=== PATIENT | male | born 1970 | race Caucasian/White ===

== ENCOUNTER → 2017-09-04 | Outpatient (CLI) | payer SELFPAY ==
[~2017-09-04] VITALS: Ht 177.8 cm; Wt 84.1 kg
[~2017-09-04] MED LIST: K-DUR20 MEQ PO; LASIX 40MG TABL40 MG PO; MOTRIN 200200 MG/TAB PO; SMZ/TMPDS PO
[2017-09-04 12:51] VITALS: BP 111/74; PULSE 91
[2017-09-04 15:08] VITALS: BP 87/48; PULSE 80
[2017-09-04 15:12] VITALS: BP 89/55; PULSE 80
[2017-09-04 15:15] VITALS: BP 106/55; PULSE 85
[2017-09-04 17:31] LABS: PERITONEAL -POLYMORPHONUCLEAR 10.5 % (0-25); PERITONEAL FLUID RBC 1000 /mm3 (0-0)
== END ==
LOC: COL.RAD 12:25
PROVIDERS: Physician Assistant
DX: R18.8 Other ascites (principal); K74.60 Unspecified cirrhosis of liver; R94.5 Abnormal results of liver function studies